=== PATIENT | female | born 1995 | race American Indian/Alaskan Native ===

== ENCOUNTER 2017-07-22 13:20 | Emergency (ER) | payer OTHER ==
--- NOTE | 2017-07-22 14:01 | Emergency Department Report ---
Chief Complaint: Chest Pain Stated Complaint: CP/LEACH/BACK PAIN/VOMITING - HPI History of Present Illness: This is a 21-year-old female nontoxic, well nourished in appearance, no acute signs of distress presents to the ED with c/o of epigastric chest pain, headache , weakness, dizziness, and back pain x2 days. Patient describes chest pain as burning and aching. Denies any calf pain, fever, chills, headache, nausea, vomiting, shrotness of breathe, thunderclap headache, blurry vision. Patient denies worst headache. Stated headache is relieved by darkness and worsened by lights. - Exam Vital Signs: Vital Signs 07/22/17 13:28 Temperature 97 F L Pulse Rate 103 H Respiratory 18 Rate Blood Pressure 124/70 O2 Sat by Pulse 100 Oximetry Physical Exam: GENERAL: The patient is a well-developed, well-nourished female in no apparent distress. Patient is alert and acting appropriately for age. Alert and oriented 3, no apparent distress, normal gait, atraumatic. LUNGS: Clear to auscultation. Non labor breathing. No intercostal retractions. Symmetrical with respiration, no wheezing, no rales, or crackles. HEART: Regular rate and rhythm without murmur, rubs or gallops. No reproducible. S1, S2 present, regular rate and rhythm without murmur, no rubs, no gallops. ABDOMEN: Soft, nontender, and nondistended. Positive bowel sounds. No hepatosplenomegaly was noted. No guarding or rebound tenderness, negative epigastric bruit. Negative psoas sign, negative carney sign, negative McBurneys sign EXTREMITIES: Without any cyanosis, clubbing, rash, lesions or edema. Peripheral pulses intact. Capillary refill less than 2 seconds. Full range of motion bilaterally. NEUROLOGIC: Cranial nerves II through XII are grossly intact. Alert and oriented x 3. Normal gait. Symmetrical strength and sensation. Reflexes 2+ throughout. Cerebellar testing normal. GCS score of 15. MSE screening note: Focused history and physical exam performed. Due to findings the following was ordered: 1- This initial assessment/diagnostic orders/clinical plan/ treatment(s) is/are subject to change based on pt's health status, clinical progression and re- assessment by fellow clinical providers in the ED. Further treatment and workup at subsequent clinical provers discretion. Patient/guardians urged not to elope from ED as their condition may be serious if not clinically assessed and managed. 2-CBC, CMP, UA, troponin, cardiac CK, test serum 3-EKG, chest x-ray ED Disposition for MSE Condition: Stable
[2017-07-22 14:39] LABS: Basophils % (Auto) 0.2 % (0.0-1.8); Hematocrit 34.2 % (30.3-42.9); Hemoglobin 11.3 gm/dl (10.1-14.3); Mean Corpuscular HGB Conc 33 % (30-34); Mean Corpuscular Hemoglobin 27 pg (28-32); Mean Corpuscular Volume 81 fl (79-97); Red Blood Count 4.21 M/mm3 (3.65-5.03); Red Cell Distribution Width 14.8 % (13.2-15.2); White Blood Count 10.5 K/mm3 (4.5-11.0)
[2017-07-22 14:57] LABS: Platelet Count 58 K/mm3 (140-440)
[2017-07-22 15:01] LABS: Anion Gap 19 mmol/L; BUN/Creatinine Ratio 14; Blood Urea Nitrogen 10 mg/dL (7-17); Calcium 8.7 mg/dL (8.4-10.2); Carbon Dioxide 21 mmol/L (22-30); Chloride 93.3 mmol/L (98-107); Creatine Kinase 64 units/L (30-135); Glucose 139 mg/dL (65-100); Potassium 3.1 mmol/L (3.6-5.0); Sodium 130 mmol/L (137-145)
[2017-07-22 15:06] LABS: Creatine Kinase MB < 1.0 ng/mL (0.0-4.0)
[2017-07-22] MEDS ORDERED: ALUM-MAG HYDROX-SIMETH 200-200-20MG/5ML PO ONE (21:42)
[2017-07-22] MEDS ORDERED: NACL 0.9% 1000 ML 1,000 ML IV ONE (21:42)
[2017-07-22] MEDS ORDERED: REGLAN IV ONE (21:42)
[2017-07-22] MEDS ORDERED: PEPCID IV ONE (21:42)
[2017-07-22] MEDS ORDERED: TYLENOL PO ONE (21:44)
--- NOTE | 2017-07-22 21:45 | Emergency Department Report ---
ED General Adult HPI - General Chief complaint: Chest Pain Stated complaint: CP/LEACH/BACK PAIN/VOMITING Time Seen by Provider: 07/22/17 21:31 Source: patient, RN notes reviewed Mode of arrival: Ambulatory Limitations: No Limitations - History of Present Illness Initial comments: This is a 21-year-old female who was previously unknown to this provider. She denies chronic medical conditions. She does not take any medications. She does not take oral contraceptives. She reports not having delivered or given within the past 2 months. Her primary care doctor is Dr. Rosen The patient presents to the ER with 3 complaints. Complaint #1 is headache. The headache started on Friday. It started in the frontal region. It then radiates all over. The headache is not sudden or thunderclap in nature. It does not reach maximal intensity within an hour. There is no neck pain. There is no neck stiffness. There is no fever. The headache worsens with exposure to sound and light. It has no relieving factors. Patient thinks that she had a worse headache a few years ago but is not certain. Complaint #2 is chest pain. The chest pain is central. It does not radiate to the back, arms or neck. She endorses one episode of nonbloody, nonbilious emesis. The chest pain increases with consumption of hot and spicy food. Patient endorses a recent trip to [place]. She describes shortness of breath incidentally, which she describes as a sensation of difficulty breathing when she speaks. The patient's last complaint is back pain. The back pain started on Friday. It is in the upper and lower back. It has no exacerbating or relieving factors. It does not radiate anywhere. To me, the patient denies irritative and obstructive urinary symptoms, she denies saddle anesthesia, she denies bladder or bowel retention and incontinence, and she reports normal defecation. -: Gradual, days(s) Location: head, chest, back Radiation: non-radiation Quality: aching Consistency: intermittent Improves with: other (per hpi) Worsens with: other (per hpi) Associated Symptoms: chest pain, headaches, malaise - Related Data Previous Rx's Medication Instructions Recorded Last Taken Type Acetaminophen [Tylenol Arthritis] 650 mg PO Q6HR PRN #30 tablet.er 07/22/17 Unknown Rx Ondansetron [Zofran Odt] 4 mg PO Q8HR PRN #20 tab.rapdis 07/22/17 Unknown Rx Allergies Allergy/AdvReac Type Severity Reaction Status Date / Time No Known Allergies Allergy Verified 07/22/17 13:27 ED Review of Systems ROS: Stated complaint: CP/LEACH/BACK PAIN/VOMITING Other details as noted in HPI Constitutional: malaise Eyes: denies: eye discharge ENT: denies: epistaxis Respiratory: denies: cough Cardiovascular: as per HPI. denies: syncope Gastrointestinal: as per HPI, nausea, vomiting Genitourinary: as per HPI. denies: dysuria Musculoskeletal: back pain Neurological: headache, weakness ED Past Medical Hx - Past Medical History Previous Medical History?: No - Surgical History Past Surgical History?: No - Social History Smoking Status: Never Smoker Substance Use Type: None - Medications Home Medications: Home Medications Medication Instructions Recorded Confirmed Last Taken Type Acetaminophen [Tylenol Arthritis] 650 mg PO Q6HR PRN #30 tablet.er 07/22/17 Unknown Rx Ondansetron [Zofran Odt] 4 mg PO Q8HR PRN #20 tab.rapdis 07/22/17 Unknown Rx ED Physical Exam - General Limitations: No Limitations General appearance: alert, in no apparent distress - Head Head exam: Present: atraumatic, normocephalic - Eye Eye exam: Present: normal appearance, PERRL, EOMI, other (visual acuity intact to finger counting, color perception, reading at a close distance). Absent: nystagmus - ENT ENT exam: Present: normal exam, normal orophraynx, mucous membranes moist, TM's normal bilaterally, normal external ear exam - Neck Neck exam: Present: normal inspection, full ROM - Respiratory Respiratory exam: Present: normal lung sounds bilaterally. Absent: respiratory distress, chest wall tenderness - Cardiovascular Cardiovascular Exam: Present: normal rhythm, tachycardia, normal heart sounds. Absent: systolic murmur, diastolic murmur, rubs, gallop - GI/Abdominal GI/Abdominal exam: Present: soft, normal bowel sounds. Absent: distended, tenderness, guarding, rebound, rigid, pulsatile mass - Extremities Exam Extremities exam: Present: normal inspection, full ROM, normal capillary refill. Absent: pedal edema, joint swelling, calf tenderness - Back Exam Back exam: Present: normal inspection, full ROM. Absent: tenderness, CVA tenderness (R), CVA tenderness (L), muscle spasm, paraspinal tenderness, vertebral tenderness - Neurological Exam Neurological exam: Present: alert, oriented X3, CN II-XII intact, normal gait ( normal tandem gait. Negative Romberg examination. No past-pointing. Normal [id number].), other (Extraocular movements intact. Tongue midline. No facial droop. Facial sensation intact to light touch in the V1, V2, V3 distribution bilaterally. 5 and 5 strength in 4 extremities.. Sensation is intact to light touch in 4 extremities.). Absent: motor sensory deficit - Psychiatric Psychiatric exam: Present: normal affect, normal mood - Skin Skin exam: Present: warm, dry, intact, normal color. Absent: rash ED Course Vital Signs 07/22/17 07/22/17 13:28 23:15 Temperature 97 F L 97.9 F Pulse Rate 103 H 77 Respiratory 18 16 Rate Blood Pressure 124/70 Blood Pressure 122/78 [Right] O2 Sat by Pulse 100 99 Oximetry - Reevaluation(s) Reevaluation #1: 07/22/17 22:32 Differential diagnosis, including but not limited to: Structural intracranial abnormality, migraine headache, tension headache, cluster headache, GERD, gastritis, pneumonia, pulmonary embolus, acute coronary syndrome, urinary tract infection Assessment and plan: 21-year-old female with multiple complaints. In terms of the patient's headache, she has a GCS of 15, with an NIH score of 0 , walks with a steady gait, and has no physical exam findings to suggest any issues with the posterior circulation. The patient is walking around the ER without difficulty. There is no lower back tenderness, she is able to urinate and defecate normally. Highly doubt epidural compression syndrome for this reason. Patient's headache will be treated with symptomatically medication, and a noncontrast CT scan of the brain will be obtained. Back pain clinically appears to be benign, walks with a steady gait, no back tenderness, no abdominal tenderness, no historical physical exam findings to suggest AAA or epidural compression syndrome. No fever or back tenderness. Her back pain can be treated with medication and expected management. Chest pain atypical for acute coronary syndrome, low risk by TRAVIS score, low risk by heart score, low risk for major adverse cardiac event. EKG #1 within normal limits, troponin normal 1, repeat EKG and troponin have been ordered, patient was initially tachycardic which has since resolved, resting heart rate is currently in the 90s, however she does endorse a recent trip to [place], so a d-dimer will be sent to risk stratify the patient for pulmonary embolus, although clinically I find the patient to be low risk by well's criteria given lack of hypoxia, and given lack of work of breathing. Reevaluation #2: 07/22/17 23:24 Patient had an episode of vomiting. I recommended Zofran. The patient refused. The patient is going to sign out AGAINST MEDICAL ADVICE. The patient is alert and oriented 3. The patient exhibits decision-making capacity. The patient is free from distracting injury. Risks of leaving, including , disability, paralysis, loss of quality of life were extensively reviewed with the patient who verbalized understanding. The AMA conversation was witnessed by nurse MEGA BERNSTEIN The patient left prior to receiving her paperwork, but I will have the nurse contact the patient at the listed phone number so she can berry picker her discharge paperwork with prescriptions and referrals. ED Medical Decision Making - Lab Data Result diagrams: 07/22/17 14:07 07/22/17 14:07 Vital Signs 07/22/17 13:28 Temperature 97 F L Pulse Rate 103 H Respiratory 18 Rate Blood Pressure 124/70 O2 Sat by Pulse 100 Oximetry Lab Results 07/22/17 07/22/17 07/22/17 Range/Units 14:07 14:07 14:07 WBC 10.5 (4.5-11.0) K/mm3 RBC 4.21 (3.65-5.03) M/mm3 Hgb 11.3 (10.1-14.3) gm/dl Hct 34.2 (30.3-42.9) % MCV 81 (79-97) fl MCH 27 L (28-32) pg MCHC 33 (30-34) % RDW 14.8 (13.2-15.2) % Plt Count 58 L (140-440) K/mm3 Lymph % (Auto) 10.7 L (13.4-35.0) % Davidson % (Auto) 12.2 H (0.0-7.3) % Eos % (Auto) 0.0 (0.0-4.3) % Baso % (Auto) 0.2 (0.0-1.8) % Lymph # 1.1 L (1.2-5.4) K/mm3 Davidson # 1.3 H (0.0-0.8) K/mm3 Eos # 0.0 (0.0-0.4) K/mm3 Baso # 0.0 (0.0-0.1) K/mm3 Seg Neutrophils % 76.9 H (40.0-70.0) % Seg Neutrophils # 8.1 H (1.8-7.7) K/mm3 Sodium 130 L (137-145) mmol/L Potassium 3.1 L (3.6-5.0) mmol/L Chloride 93.3 L (98-107) mmol/L Carbon Dioxide 21 L (22-30) mmol/L Anion Gap 19 mmol/L BUN 10 (7-17) mg/dL Creatinine 0.7 (0.7-1.2) mg/dL Estimated GFR > 60 ml/min BUN/Creatinine Ratio 14 % Glucose 139 H (65-100) mg/dL Calcium 8.7 (8.4-10.2) mg/dL Total Creatine Kinase 64 (30-135) units/L CK-MB (CK-2) < 1.0 (0.0-4.0) ng/mL CK-MB (CK-2) Rel Index 1.5 (0-4) Troponin T < 0.010 (0.00-0.029) ng/mL HCG, Qual Negative (Negative) - EKG Data -: EKG Interpreted by Az - EKG Data 07/22/17 22:34 Normal sinus, 90 bpm, normal intervals, normal axis, not morphologically consistent with STEMI, there is no prior EKG available for comparison Critical care attestation.: If time is entered above; I have spent that time in minutes in the direct care of this critically ill patient, excluding procedure time. ED Disposition Clinical Impression: Headache, Chest pain, Back pain, Thrombocytopenia Disposition: LEFT AGAINST MED ADVICE Is pt being admited?: No Does the pt Need Aspirin: No Condition: Undetermined Instructions: Chest Pain (ED) Additional Instructions: Follow-up with the primary care doctor or aircraft engine specialist for low platelet count within the next 2 weeks. Return to the ER right away with new pain, worsened pain, migration of pain, fevers, chills, lethargy, irritability, productive vomiting, change in mental status, confusion, inability to tolerate liquid feeds. As we discussed, you have left the hospital/emergency room AGAINST MEDICAL ADVICE. By leaving, you risked , disability, paralysis, permanent loss of quality of life. The ER is open 24 hours a day, 7 days a week. It never closes. Please return to the emergency room right away if and when you change your mind. If you decide not to return to the emergency room, please follow-up with the listed physician referrals as soon as possible. Do not consume Motrin, ibuprofen, Aleve, or aspirin until cleared by either a primary care doctor or aircraft engine specialist. Dr. Braxton is a local hematology doctor. Dr. Singh is a local primary care doctor. Prescriptions: Acetaminophen [Tylenol Arthritis] 650 mg PO Q6HR PRN #30 tablet.er PRN Reason: Pain Ondansetron [Zofran Odt] 4 mg PO Q8HR PRN #20 tab.rapdis PRN Reason: Nausea Referrals: JESSY ROSEN MD [Primary Care Provider] - 3-5 Days LYLE BRAXTON MD [Staff Physician] - 3-5 Days RIKKI SINGH MD [Referring] - 3-5 Days
[2017-07-22] MEDS ORDERED: ZOFRAN ONE (22:53)
[2017-07-22] MEDS ORDERED: ZOFRAN IV ONE (22:53)
[2017-07-22 23:16] VITALS: BP 122/78
[2017-07-23 00:48] LABS: Bacteria,Urine 1+ /HPF (Negative); Bilirubin,Urine NEG (Negative); Blood,Urine NEG (Negative); Ketones,Urine NEG (Negative); Leukocyte Esterase,Urine TR (Negative); Mucus,Urine FEW /HPF; Nitrite,Urine NEG (Negative)
--- NOTE | 2017-07-23 10:22 | XRay Report ---
CHEST 2 VIEWS INDICATION: Chest pain. COMPARISON: None similar at this institution. FINDINGS: Frontal and lateral chest radiographs demonstrate normal cardiomediastinal silhouette and clear lungs, given the inspiration. Intact bones. CONCLUSION: No acute disease. Thank you for the opportunity to participate in this patient's care.
== END 2017-07-22 23:24 | disposition left against medical advice (07) ==
LOC: ED 13:20
DX: R07.9 Chest pain, unspecified (principal); R51 Headache; D69.6 Thrombocytopenia, unspecified
CPT/HCPCS: 36415; 71020; 80048; 81001; 82550; 82553; 84484; 84703; 85025; 93005; 93010; 96361; 96374; 96375; 99284; J2405; J2765; J7030